=== PATIENT | male | born 1965 | race Caucasian/White ===

== ENCOUNTER → 2017-11-03 | Outpatient (CLI) | payer BC ==
--- NOTE | 2017-11-03 15:47 | US ---
EXAMINATION TYPE: US thyroid st tissue head/neck DATE OF EXAM: 11/03/2017 COMPARISON: NONE CLINICAL HISTORY: R13.10 Dysphagia. GLAND SIZE: Right Lobe: 5.8 x 1.2 x 1.9 cm Overall Parenchyma: homogenous Left Lobe: 5.4 x 1.2 x 1.7 cm Overall Parenchyma: homogeneous Isthmus Thickness: 0.4 cm NODULES RIGHT: # of nodules measured on right: 0 LEFT: # of nodules measured on left: 0 ISTHMUS: # of nodules measured in the isthmus: 0 neck scanned over are of pt concern where it felt like something sticking last week, better now. Bilateral neck scanned, no evidence of lymphadenopathy. Homogeneous normal size thyroid without discrete nodule. IMPRESSION: Unremarkable study.
== END | disposition home or self-care (01) ==
LOC: RADUSWWP 15:21
PROVIDERS: ATTEND Family Medicine
DX: R13.10 Dysphagia, unspecified (principal)
CPT/HCPCS: 76536